=== PATIENT | male | born 1975 | race Caucasian/White ===

== ENCOUNTER 2017-10-27 07:03 | Inpatient (IN) | payer MEDICAID ==
[~2017-10-27] VITALS: Ht 175.3 cm; Wt 111.6 kg
--- NOTE | ~2017-10-27 | DS ---
PATIENT:ERIK ROUSSEAU :73 MEDICAL RECORD: [id number] DISCHARGE SUMMARY ADMISSION DATE: 10/27/17 DISCHARGE DATE: 11/05/17 PREOPERATIVE DIAGNOSES: 1. Prolapsed stoma, symptomatic. 2. Symptomatic parastomal hernia. 3. Severe hemorrhagic proctitis. 4. Hepatitis C. 5. Crohn's disease. 6. Postoperative ileus. PROCEDURES: 1. Parastomal hernia repair. 2. Ileostomy revision. 3. Flexible proctoscopy with biopsies. HOSPITAL COURSE: The patient underwent parastomal hernia repair as well as ileostomy revision. He had an ileus postoperatively. His ileus resolved. He was complaining of rectal discharge as well as rectal pain and pressure. He underwent flexible proctoscopy with biopsies. Severe hemorrhagic proctitis was noted. He is being dismissed back to his home residential facility. He is being dismissed back with the recommendation that he use a wheelchair for 60 days. He will need some type of analgesia. I have written a prescription for tramadol 50 mg one p.o. every 6 hours, I would like him to start back on his Asacol 800 mg t.i.d. as well as Cortenema 1 per rectum b.i.d. I will see him in my office in 3 weeks for suture removal. TRANSINT:[id number] Voice Confirmation ID: [id number] DOCUMENT ID: [id number] JONATHAN YO MD at 0938 CC: [id number] DICTATION DATE: 11/05/17 1047 PATIENT FINANCIAL SERVICES MANAGER: 11/05/17 1456 DIS IN 11/05/17 [place] [id number]
--- NOTE | ~2017-10-27 | OP ---
PATIENT NAME: ERIK ROUSSEAU MEDICAL RECORD: [id number] :73 LOCATION:D.[facility] ADMISSION DATE:10/27/17 SURGEON: SIVAKUMAR YO MD DATE OF OPERATION: 11/05/2017 PREOPERATIVE DIAGNOSES: 1. Anorectal pain. 2. Crohn's disease. POSTOPERATIVE DIAGNOSES: 1. Anorectal pain. 2. Crohn's disease. 3. Severe distal proctitis with hemorrhage. PROCEDURE: Flexible proctoscopy with biopsies. SURGEON: Sivakumar Yo MD CITRIX SYSTEMS ADMINISTRATOR: None. BLOOD LOSS: Less than 5 cc. ANESTHESIA: IV sedation. COMPLICATIONS: None. The patient is improving from the standpoint of his ileostomy revision and parastomal hernia repair. He is having gas as well as stool out in his bag. He is now complaining of rectal pressure as well as pain. ENDOSCOPIC COURSE: The patient was conveyed to the endoscopy suite electively on 11/05/2017. IV sedation was induced by the anesthesia staff. It was necessary to have anesthesia staff present in order to provide adequate analgesia and sedation as the patient has a medication tolerance. IV sedation was induced by the anesthesia staff. The patient was placed in the Chandra position. A digital rectal examination was performed. A colonoscope was inserted through the anus. It was advanced to the blind rectal pouch. I slowly withdrew the endoscope. There was a contact bleeding as well as spontaneous bleeding. Biopsies were taken in the distal rectum where the proctitis was most severe. The patient was then conveyed back to the room. I am going to recommend steroid enema such as Cortenema one per rectum b.i.d. I would recommend he be started back on his Asacol 800 mg 1 p.o. t.i.d. The patient can consider some type of analgesia. I would recommend tramadol 50 mg 1 p.o. every 6 hours p.r.n. pain, #20. I have asked the patient to see me in the office in 3 weeks for suture removal. Please consider allowing him to use a wheelchair for 60 days. TRANSINT:[id number] Voice Confirmation ID: [id number] DOCUMENT ID: [id number] OPERATIVE REPORT [id number] ERIK ROUSSEAU SIVAKUMAR YO MD at 0938 CC: [id number] DICTATION DATE: 11/05/17 1042 POUCH MAKING MACHINE OPERATOR: 11/05/17 1359 DIS IN 11/05/17 [place] [id number] [place] [id number]
--- NOTE | ~2017-10-27 | OP ---
PATIENT NAME: ERIK ROUSSEAU MEDICAL RECORD: [id number] :73 LOCATION:D.[facility] [place] ADMISSION DATE:10/28/17 SURGEON: JONATHAN YO MD DATE OF OPERATION: 10/27/2017 PREOPERATIVE DIAGNOSES: 1. Prolapsed ileostomy. 2. Parastomal hernia. POSTOPERATIVE DIAGNOSES: 1. Prolapsed ileostomy. 2. Incarcerated parastomal hernia. PROCEDURE: 1. Ileostomy revision. 2. Incarcerated parastomal hernia repair without mesh. SURGEON: Jonathan Yo MD WINDING INSPECTOR AND TESTER: None. BLOOD LOSS: 75 cc. ANESTHESIA: General. COMPLICATIONS: None. The risks, possible complications and alternatives to the procedure were explained to the patient. He elects to proceed. The discussion specifically included, but was not limited to, bleeding requiring an emergency reoperation, infection, recurrent herniation, recurrent stomal prolapse. OPERATIVE COURSE: The patient was conveyed to the operating room electively on 10/27/2017. General anesthesia was induced by the anesthesia staff. The abdomen was sterilely prepped and draped. An incision was accomplished around the ileostomy. I was able to deliver more of the ileum. The hernia sac was excised. The incarcerated small bowel was identified and I was able to bluntly dissect inside the abdomen with my gloved finger to release some adhesions. The incarcerated small bowel was then returned to the peritoneal cavity. The parastomal hernia was repaired with multiple 0 Surgidac sutures tightening up the fascia circumferentially around the ileum. I then ligated and divided a portion of the mesentery to the ileum. I shortened the ileum by dividing it. A Latha type of ileostomy was fashioned with interrupted 3-0 Vicryl sutures. I then tightened up the skin medially and laterally to allow for a smaller opening for the ileostomy. This tightening was done with interrupted horizontal mattress 3-0 Vicryls. A stomal appliance was then applied. The patient was then extubated and conveyed to post-anesthesia care unit where he was in stable condition. TRANSINT:[id number] Voice Confirmation ID: [id number] DOCUMENT ID: [id number] OPERATIVE REPORT [id number] SOHAMERIK SYED JONATHAN YO MD at 1327 CC: JONATHAN DAMON MD, JUAN BARAKAT MD and VENKATA KAUR [id number] DICTATION DATE: 10/27/17 1124 GLAZE HANDLER: 10/27/17 1218 ADM IN [place] [id number] [place] [id number]
[~2017-10-27 07:03] MED LIST: ASACOL HD800 MG PO; ATIVAN2 MG/ML IM; BENTYL10 MG PO; BUSPAR10 MG PO; CIPRO500 MG; HYDROCODON-ACE1 EAC7 PO; HYDROCODONE-APA1 TAB PO; IMODIUM2 MG PO; KENALOG IN ORABA5 GM TP; KLONOPIN1 MG PO; LORTAB 5/500 TA1 TA2 PO; OXYCONTIN30 MG PO; PHENERGAN25 MG/ML IM; PREDNISONE20 MG PO; PRILOSEC20 MG PO; ROWASA 4 G4 G/60 ML/; ROXICODONE15 MG PO; SOLU-MEDRO40 MG/1 M1 IV; TRIAMCINOLONE A60 M1 TP; ULTRAM50 MG PO; VITAMIN B-121000 MCG PO; ZOFRAN4 MG PO; [UNRECOGNIZED DRUG - OTHER]
[2017-10-27] MEDS ORDERED: NEURONTIN 300300 MG (08:00)
[2017-10-27] MEDS ORDERED: ZYPREXA7.5 MG PO (08:01)
[2017-10-28 02:30] VITALS: BP 111/56
[2017-10-28 04:48] VITALS: BP 126/69; BMI 36.4
[2017-10-28 08:45] VITALS: BP 114/66
[2017-10-28 12:45] VITALS: BP 124/64
[2017-10-28 23:00] VITALS: BP 168/66
[2017-10-29 05:00] VITALS: BP 122/71
[2017-10-29 16:56] VITALS: BP 131/76
[2017-10-29 20:00] VITALS: BP 108/59
[2017-10-30 04:00] VITALS: BP 106/69
[2017-10-30 07:59] VITALS: BP 108/55
[2017-10-30 12:03] VITALS: Ht 175.3 cm; Wt 111.6 kg
[2017-10-30 12:23] VITALS: BP 108/51
[2017-10-30 15:52] VITALS: BP 132/81
[2017-10-30 20:00] VITALS: BP 94/51
[2017-10-31] VITALS: BP 102/59
[2017-10-31 05:00] VITALS: BP 91/46
[2017-10-31 11:06] LABS: BASOPHILS 0 % (0-2); EOSINOPHILS 1.6 % (0-7); HEMATOCRIT 34.8 % (42.0-54.0); HEMOGLOBIN 11.8 g/dL (13.5-17.5); IMMATURE GRANULOCYTES 0.4 % (0-5); LYMPHOCYTES 15.4 % (15-50); MCH 29.1 pg (26.0-34.0); MCHC 33.9 g/dL (31.0-37.0); MCV 85.9 fL (80.0-100.0); MEAN PLATELET VOLUME 9.7 fL (7.4-10.4); MONOCYTES 8.1 % (2-11); NEUTROPHILS 74.5 % (40-80); PLATELET COUNT 154 10x3/uL (130-400); RBC 4.05 10x6/uL (4.20-6.10); RDW 13.3 % (11.5-14.5); WBC 5.6 10x3/uL (4.8-10.8)
[2017-10-31 11:07] VITALS: BP 100/50
[2017-10-31 11:15] LABS: CALC OSMOLALITY 282 mosm/kg (275-300); CALCIUM 8.5 mg/dL (8.5-10.1); CARBON DIOXIDE 27.5 mmol/L (21.0-32.0); CHLORIDE - SERUM 106 mmol/L (98-107); CREATININE - SERUM 0.8 mg/dL (0.6-1.3); GLUCOSE 151 mg/dL (74-106); POTASSIUM - SERUM 3.5 mmol/L (3.5-5.1); SODIUM 139 mmol/L (136-145); UREA NITROGEN 18 mg/dL (7-18); eGFR NON AFRICAN AMERICAN > 90 mL/min (90-120)
[2017-10-31 15:14] VITALS: BP 97/48
[2017-10-31 22:00] VITALS: BP 118/55
[2017-11-01 05:00] VITALS: BP 122/62
[2017-11-01 05:08] LABS: BASOPHILS 0 % (0-2); EOSINOPHILS 2.9 % (0-7); HEMATOCRIT 34.4 % (42.0-54.0); HEMOGLOBIN 11.7 g/dL (13.5-17.5); IMMATURE GRANULOCYTES 0.2 % (0-5); LYMPHOCYTES 23.9 % (15-50); MCH 29.3 pg (26.0-34.0); MEAN PLATELET VOLUME 9.2 fL (7.4-10.4); MONOCYTES 8.6 % (2-11); NEUTROPHILS 64.4 % (40-80); PLATELET COUNT 155 10x3/uL (130-400); RDW 13.4 % (11.5-14.5); WBC 5.2 10x3/uL (4.8-10.8)
[2017-11-01 05:19] LABS: CALC OSMOLALITY 286 mosm/kg (275-300); CALCIUM 8.2 mg/dL (8.5-10.1); CARBON DIOXIDE 24.8 mmol/L (21.0-32.0); CHLORIDE - SERUM 110 mmol/L (98-107); CREATININE - SERUM 0.7 mg/dL (0.6-1.3); GLUCOSE 110 mg/dL (74-106); POTASSIUM - SERUM 3.7 mmol/L (3.5-5.1); SODIUM 143 mmol/L (136-145); UREA NITROGEN 16 mg/dL (7-18); eGFR NON AFRICAN AMERICAN > 90 mL/min (90-120)
[2017-11-01 07:28] VITALS: BP 117/63
[2017-11-01 11:04] VITALS: BP 116/64
[2017-11-01 20:00] VITALS: BP 126/75
[2017-11-02] VITALS: BP 148/93
[2017-11-02 04:00] VITALS: BP 138/88
[2017-11-02 08:51] VITALS: BP 120/71
[2017-11-02 12:20] VITALS: BP 135/78
[2017-11-02 13:05] LABS: BASOPHILS 0 % (0-2); EOSINOPHILS 2.9 % (0-7); HEMATOCRIT 35.9 % (42.0-54.0); HEMOGLOBIN 12.2 g/dL (13.5-17.5); IMMATURE GRANULOCYTES 0.4 % (0-5); LYMPHOCYTES 16.4 % (15-50); MCH 28.9 pg (26.0-34.0); MCV 85.1 fL (80.0-100.0); MEAN PLATELET VOLUME 8.8 fL (7.4-10.4); MONOCYTES 9.3 % (2-11); PLATELET COUNT 162 10x3/uL (130-400); RBC 4.22 10x6/uL (4.20-6.10); WBC 4.5 10x3/uL (4.8-10.8)
[2017-11-02 13:17] LABS: CALC OSMOLALITY 276 mosm/kg (275-300); CALCIUM 7.9 mg/dL (8.5-10.1); CARBON DIOXIDE 25.9 mmol/L (21.0-32.0); CHLORIDE - SERUM 106 mmol/L (98-107); CREATININE - SERUM 0.7 mg/dL (0.6-1.3); GLUCOSE 96 mg/dL (74-106); POTASSIUM - SERUM 3.5 mmol/L (3.5-5.1); SODIUM 139 mmol/L (136-145); eGFR NON AFRICAN AMERICAN > 90 mL/min (90-120)
[2017-11-02 13:18] LABS: UREA NITROGEN 11 mg/dL (7-18)
[2017-11-02 16:03] VITALS: BP 127/71
[2017-11-02 20:00] VITALS: BP 135/79
[2017-11-03] VITALS: BP 129/73
[2017-11-03 04:00] VITALS: BP 130/76
[2017-11-03 08:35] LABS: BASOPHILS 0.2 % (0-2); EOSINOPHILS 2.3 % (0-7); HEMOGLOBIN 13.1 g/dL (13.5-17.5); IMMATURE GRANULOCYTES 0.5 % (0-5); LYMPHOCYTES 13.5 % (15-50); MCH 28.8 pg (26.0-34.0); MCHC 34.5 g/dL (31.0-37.0); MCV 83.5 fL (80.0-100.0); MEAN PLATELET VOLUME 8.9 fL (7.4-10.4); MONOCYTES 9.2 % (2-11); NEUTROPHILS 74.3 % (40-80); PLATELET COUNT 174 10x3/uL (130-400); RBC 4.55 10x6/uL (4.20-6.10); RDW 12.9 % (11.5-14.5)
[2017-11-03 08:45] LABS: WBC 5.7 10x3/uL (4.8-10.8)
[2017-11-03 09:01] LABS: ALBUMIN 2.9 g/dL (3.4-5.0); ALKALINE PHOSPHATASE 200 U/L (46-116); ALT (SGPT) 53 U/L (10-68); BILIRUBIN - TOTAL 1.01 mg/dL (0.2-1.3); CALC OSMOLALITY 270 mosm/kg (275-300); CALCIUM 8.3 mg/dL (8.5-10.1); CARBON DIOXIDE 26.4 mmol/L (21.0-32.0); CHLORIDE - SERUM 101 mmol/L (98-107); CREATININE - SERUM 0.6 mg/dL (0.6-1.3); GLUCOSE 101 mg/dL (74-106); MAGNESIUM - SERUM 2.2 mg/dL (1.8-2.4); PHOSPHOROUS 3.2 mg/dL (2.5-4.9); POTASSIUM - SERUM 3.7 mmol/L (3.5-5.1); PROTEIN - SERUM 5.7 g/dL (6.4-8.2); SODIUM 136 mmol/L (136-145); UREA NITROGEN 10 mg/dL (7-18); eGFR NON AFRICAN AMERICAN > 90 mL/min (90-120)
[2017-11-03 09:56] VITALS: BP 129/87
[2017-11-03 12:47] VITALS: BP 121/72
[2017-11-03 16:13] VITALS: BP 117/73
[2017-11-03 20:00] VITALS: BP 119/71
[2017-11-04] VITALS: BP 113/76
[2017-11-04 04:00] VITALS: BP 115/68
[2017-11-04 08:07] VITALS: BP 127/80
[2017-11-04 08:45] LABS: BASOPHILS 0.2 % (0-2); EOSINOPHILS 3.4 % (0-7); HEMATOCRIT 39.1 % (42.0-54.0); HEMOGLOBIN 13.6 g/dL (13.5-17.5); IMMATURE GRANULOCYTES 0.6 % (0-5); LYMPHOCYTES 15.5 % (15-50); MCH 28.9 pg (26.0-34.0); MCHC 34.8 g/dL (31.0-37.0); MONOCYTES 8.5 % (2-11); NEUTROPHILS 71.8 % (40-80); PLATELET COUNT 184 10x3/uL (130-400); RBC 4.71 10x6/uL (4.20-6.10); RDW 12.8 % (11.5-14.5); WBC 4.7 10x3/uL (4.8-10.8)
[2017-11-04 09:00] LABS: ALBUMIN 2.8 g/dL (3.4-5.0); ALKALINE PHOSPHATASE 181 U/L (46-116); ALT (SGPT) 38 U/L (10-68); BILIRUBIN - TOTAL 0.89 mg/dL (0.2-1.3); CALC OSMOLALITY 275 mosm/kg (275-300); CALCIUM 8.8 mg/dL (8.5-10.1); CARBON DIOXIDE 25.5 mmol/L (21.0-32.0); CHLORIDE - SERUM 102 mmol/L (98-107); CREATININE - SERUM 0.7 mg/dL (0.6-1.3); GLUCOSE 97 mg/dL (74-106); MAGNESIUM - SERUM 2.3 mg/dL (1.8-2.4); PHOSPHOROUS 3.2 mg/dL (2.5-4.9); POTASSIUM - SERUM 4.1 mmol/L (3.5-5.1); PROTEIN - SERUM 6.4 g/dL (6.4-8.2); SODIUM 138 mmol/L (136-145); UREA NITROGEN 12 mg/dL (7-18); eGFR NON AFRICAN AMERICAN > 90 mL/min (90-120)
[2017-11-04 12:43] VITALS: BP 124/80
[2017-11-04 16:08] VITALS: BP 109/68
[2017-11-04 20:00] VITALS: BP 132/65
[2017-11-05 04:00] VITALS: BP 113/78
[2017-11-05 08:35] VITALS: BP 111/73
[2017-11-05] MEDS ORDERED: CORTENEMA100 MG/60 RC (11:44)
[2017-11-05] MEDS ORDERED: ULTRAM50 MG PO (11:46)
== END 2017-11-05 14:23 | DRG 354 ==
LOC: D.MS 07:03 → D.OPS 07:03 → D.MS 18:56 → D.OPS 10-28 16:00 → D.MS 10-28 16:00 → D.OPS 10-28 16:05 → D.MS 10-28 16:05 → EDSTATUS 11-05 09:00 → D.MS 11-05 14:23
PROVIDERS: Surgery
PROC: 0WQF0ZZ Repair Abdominal Wall, Open Approach (ICD-10-PCS; principal; 2017-10-27)
PROC: 0DBP8ZX Excision of Rectum, Via Natural or Artificial Opening Endoscopic, Diagnostic (ICD-10-PCS; 2017-11-05)
DX: K94.19 Other complications of enterostomy (principal); K50.90 Crohn's disease, unspecified, without complications; K56.7 Ileus, unspecified; K43.5 Parastomal hernia without obstruction or gangrene; K21.9 Gastro-esophageal reflux disease without esophagitis; K62.89 Other specified diseases of anus and rectum; B18.2 Chronic viral hepatitis C

== ENCOUNTER 2020-02-22 12:07 | Emergency (ER) | payer OTHER ==
[~2020-02-22] VITALS: Ht 180.3 cm; Wt 77.3 kg
[~2020-02-22 12:07] MED LIST changes: +CORTENEMA100 MG/60 RC; +NEURONTIN 300300 MG PO; +SULFAZINE EC500 MG PO; +ZYPREXA7.5 MG PO
[2020-02-22 12:26] VITALS: Ht 180.3 cm; Wt 77.3 kg
[2020-02-22 13:24] LABS: BASOPHILS 0.2 % (0-2); EOSINOPHILS 2.2 % (0-7); HEMATOCRIT 40.9 % (42.0-54.0); HEMOGLOBIN 13.8 g/dL (13.5-17.5); IMMATURE GRANULOCYTES 0.2 % (0-5); LYMPHOCYTES 18.4 % (15-50); MCH 27.8 pg (26.0-34.0); MCHC 33.7 g/dL (31.0-37.0); MCV 82.5 fL (80.0-100.0); MONOCYTES 8.2 % (2-11); NEUTROPHILS 70.8 % (40-80); PLATELET COUNT 160 10x3/uL (130-400); RBC 4.96 10x6/uL (4.20-6.10); RDW 14.2 % (11.5-14.5); WBC 5.4 10x3/uL (4.8-10.8)
[2020-02-22 13:28] LABS: CALC OSMOLALITY 278 mosm/kg (275-300); CALCIUM 8.9 mg/dL (8.5-10.1); CARBON DIOXIDE 26.1 mmol/L (21.0-32.0); CHLORIDE - SERUM 105 mmol/L (98-107); CREATININE - SERUM 0.8 mg/dL (0.6-1.3); GLUCOSE 94 mg/dL (74-106); POTASSIUM - SERUM 4.3 mmol/L (3.5-5.1); SODIUM 139 mmol/L (136-145); UREA NITROGEN 16 mg/dL (7-18); eGFR NON AFRICAN AMERICAN > 90 mL/min (90-120)
[2020-02-22 13:36] LABS: ALBUMIN 3.8 g/dL (3.4-5.0); ALKALINE PHOSPHATASE 168 U/L (30-120); ALT (SGPT) 53 U/L (10-68); AMYLASE - SERUM 46 U/L (25-115); BILIRUBIN - TOTAL 0.45 mg/dL (0.2-1.3); LIPASE 22 U/L (73-393); PROTEIN - SERUM 7.5 g/dL (6.4-8.2)
[2020-02-22 15:15] VITALS: BP 99/68
== END 2020-02-22 15:15 | disposition home or self-care (01) ==
LOC: D.ER 12:07
PROVIDERS: Family Medicine
DX: R10.9 Unspecified abdominal pain (principal); K50.90 Crohn's disease, unspecified, without complications

== ENCOUNTER 2020-12-31 01:16 | Inpatient (IN) | payer MEDICAID ==
[~2020-12-31] VITALS: Ht 180.3 cm; Wt 79.4 kg
[~2020-12-31 01:16] MED LIST changes: +LEVOFLOXACIN500 MG PO; +PHENERGAN25 M1 PO; -PHENERGAN25 MG/ML IM
--- NOTE | 2020-12-31 03:37 | NUR ---
CORRECTION OFFICERS AT BEDSIDE
--- NOTE | 2020-12-31 03:44 | NUR ---
PT REFUSED PLACEMENT OF NG TUBE.
--- NOTE | 2020-12-31 03:50 | NUR ---
RECEIVED REPORT FROM ER, PT IS A&OX4, ESCORTED WITH 2 GUARDS,HISTORY AND MEDS REVIEWED, PT IS REFUSING NGT, WILL CONTINUE PLAN OF CARE
[2020-12-31] MEDS ORDERED: PEPCID AC20 MG PO (04:32)
[2020-12-31] MEDS ORDERED: ONDANSETRON HCL8 MG PO (04:34)
[2020-12-31 04:55] VITALS: BP 109/69
--- NOTE | 2020-12-31 07:00 | NUR ---
LYING IN BED, AWAKE/ALERT/ORIENTED, T/R SELF AD MAYRA, CONT OF URINE WITH USE OF URINAL/BRPs AD MAYRA, COLOSTOMY BAG IN PLACE, EMPTIED AD MAYRA, CLEANED DAILY, C/O SHARP ABD PAIN RATED 8/10, MEDICATED ORDERED (SEE MAR), NPO FOR PROCEDURE, CALL LIGHT/PHONE WITHIN REACH, NO S/S OF ACUTE DISTRESS OBSERVED.
[2020-12-31 08:19] VITALS: BP 110/66
[2020-12-31 11:24] VITALS: BP 101/61
[2020-12-31 12:29] VITALS: BMI 24.4
[2020-12-31 15:39] VITALS: BP 108/64
--- NOTE | 2020-12-31 16:23 | MORECARE ---
CASE MANAGEMENT DISCHARGE SUMMARY PATIENT: ERIK ROUSSEAU UNIT: [id number] ADM DATE: 12/31/20 AGE: 45 : 73 SEX: M ROOM/BED: D.2107 AUTHOR: WEI RAMÍREZ PHYSICIAN: REFERRING PHYSICIAN: JONATHAN YO MD DATE OF SERVICE: 12/31/20 Discharge Plan Patient Name: ERIK ROUSSEAU [facility] [facility] 1975 Planned Disposition: Court\Law Enforcement Anticipated Discharge Date: Discharge Date: Expected LOS: Initial Reviewer: [email or web address] Initial Review Date: 12/31/2020 Generated: 12/31/20 5:22 pm Comments DCP- Discharge Planning Updated by [email or web address]: Karlene Anderson on 12/31/20 3:[address] Patient Name: ERIK ROUSSEAU Admission Status: ER Accout number: [id number] Admission Date: 12-31-2020 : 1975 Admission Diagnosis: Attending: JONATHAN YO Current LOS: 1 Anticipated DC Date: Planned Disposition: Court\Law Enforcement Primary Insurance: MEDICAID SHELTER PENDING DC PLAN: Return to [facility] DC NEEDS: Escort back to [facility]. Patient is currently an inmate at [facility]. He will return there upon discharge from hospital. He will transport back via ambulance/[facility] arrangements. CM will continue to follow and assist as needed with dc plans/needs. Ship/Rec/Doc Control: Karlene Anderson Patient Name: ERIK ROUSSEAU Page [id number] at 1623 All edits/amendments must be made on the electronic document DICTATION DATE: 12/31/20 1623 SERVICE SPRINKLER HELPER: MICHAEL 12/31/20 1623 RPT#: [id number] DC DATE: STATUS: ADM IN [facility] [address] [place] [address] END OF REPORT
--- NOTE | 2020-12-31 17:00 | NUR ---
NON FOR RAIL CREW MEMBER DILAUDID, RAIL CREW MEMBER SET UP ORDERED, EXPLAINED HOW TO USE TO PT WHO VOICED UNDERSTANDING, RAIL CREW MEMBER BUTTON/CALL LIGHT/PHONE/WATER WITHIN REACH, NO S/S OF ACUTE DISTRESS OBSERVED.
--- NOTE | 2020-12-31 17:13 | NUR ---
ASSISTANT CONSTRUCTION SUPERINTENDENT DILAUDID STARTED AT THIS TIME.
--- NOTE | 2020-12-31 21:55 | NUR ---
REOPORT RECEIVED, WILL CONT POC. PT A&O, UP IN BED. NO S/S OF DISTRESS OBSERVED. RR EVEN AND UNLABORED ON RA. BED LOCKED AND LOWERED, CL IN REACH. ASSESSMENT COMPLETED AT THIS TIME. WILL CONT TO MONITOR.
[2021-01-01 01:07] VITALS: BP 99/54
[2021-01-01 05:22] LABS: BASOPHILS 0 % (0-2); EOSINOPHILS 0 % (0-7); HEMATOCRIT 34.6 % (42.0-54.0); HEMOGLOBIN 10.7 g/dL (13.5-17.5); LYMPHOCYTE ABS# 0.63 10x3/uL (1.32-3.57); LYMPHOCYTES 11.6 % (15-50); MCH 24.3 pg (26.0-34.0); MCHC 30.9 g/dL (31.0-37.0); MCV 78.5 fL (80.0-100.0); MEAN PLATELET VOLUME 9.4 fL (7.4-10.4); MONOCYTES 0.4 % (2-11); PLATELET COUNT 283 10x3/uL (130-400); RBC 4.41 10x6/uL (4.20-6.10); RDW 15.6 % (11.5-14.5); WBC 5.5 10x3/uL (4.8-10.8)
[2021-01-01 05:38] VITALS: BP 107/63
[2021-01-01 05:50] LABS: ALKALINE PHOSPHATASE 257 U/L (30-120); ALT (SGPT) 51 U/L (10-68); BILIRUBIN - TOTAL 0.51 mg/dL (0.2-1.3); CALC OSMOLALITY 285 mosm/kg (275-300); CALCIUM 8.6 mg/dL (8.5-10.1); CARBON DIOXIDE 23.1 mmol/L (21.0-32.0); CHLORIDE - SERUM 107 mmol/L (98-107); GLUCOSE 122 mg/dL (74-106); POTASSIUM - SERUM 4.3 mmol/L (3.5-5.1); PROTEIN - SERUM 6.6 g/dL (6.4-8.2); SODIUM 141 mmol/L (136-145); UREA NITROGEN 23 mg/dL (7-18); eGFR NON AFRICAN AMERICAN 85 mL/min (90-120)
--- NOTE | 2021-01-01 07:10 | NUR ---
LYING IN BED, AWAKE/ALERT/ORIENTED, T/R SELF AD MAYRA, FC PATENT AND DRAINING CLEAR YELLOW URINE TO CDB IN AMPLE AMT, CATH CARE PROVIDED WITH DAILY BATH AND PRN, CONT OF BOWEL WITH BRPs AD MAYRA, DENIES PAIN/OTHER DISCOMFORT AT THIS TIME, CALL LIGHT/PHONE/WATER WITHIN REACH, NO S/S OF ACUTE DISTRESS OBSERVED.
[2021-01-01 08:00] VITALS: BP 109/66
--- NOTE | 2021-01-01 08:30 | NUR ---
OFF UNIT FOR PROCEDURE.
--- NOTE | 2021-01-01 09:30 | NUR ---
BACK TO ROOM, CALL LIGHT/PHONE/WATER WITHIN REACH, NO S/S OF ACUTE DISTRESS OBSERVED.
--- NOTE | 2021-01-01 11:00 | NUR ---
3 ATTEMPTS MADE TO RESITE IV, NONE WERE SUCCESSFUL.
[2021-01-01 12:00] VITALS: BP 110/69
[2021-01-01 15:00] VITALS: BP 108/63
--- NOTE | 2021-01-01 15:00 | NUR ---
CONT TO ATTEMPT IV, 4 EFFORTS UNSUCCESSFUL, INCLUDING USE OF DOPPLER AND VEIN FINDER.
--- NOTE | 2021-01-01 17:00 | NUR ---
IV ACQUIRED BY NEEDLE PROCESS FELT GOODS SUPERVISOR USING ULTRASOUND TO LEFT UPPER ARM.
--- NOTE | 2021-01-01 17:15 | NUR ---
FLUIDS AND LCPC RESTARTED.
--- NOTE | 2021-01-01 17:40 | NUR ---
IV INFILTRATED, CALLED NERIS HARRISON, GOT ORDER FOR DC MERREPENEM IV/ORDER FOR LEVAQUIN 500 MG PO QD/NORCO 10 MG PO Q4H PRN, READ BACK ORDER WITH VERBAL CONFIRMATION PROVIDED BY NERIS HARRISON.
--- NOTE | 2021-01-01 17:55 | NUR ---
STUDENT NURSE INSTRUCTER ABLE TO GET 22 GA IN RT. WRIST AFTER 1 ATTEMPT.
--- NOTE | 2021-01-01 18:00 | NUR ---
SINCE IV LOOKS VERY FRAGILE, GAVE LEVAQUIN AND NORCO ORDERED, AFTER TAKING PT ASKED IF THIS NURSE WAS GOING TO RESTART SEWING MACHINE OPERATOR AND I REPLIED NO NOT AT THIS TIME. PT THEN ASKED TO SPEAK WITH CHARGE NURSE, THIS NURSE ATTEMPTED TO GIVE CHARGE NURSE RUN DOWN OF PROBLEM BEFORE SHE WENT IN TO SEE PT.
[2021-01-01 22:14] VITALS: BP 112/74
[2021-01-02 01:00] VITALS: BP 116/71
--- NOTE | 2021-01-02 02:50 | NUR ---
PATIENT AAOX4, NO S/S OF DISTRESS, RESP EVEN AND NON LABORED, MEDICATIONS ADMOSNITERED WITHOUT COMPLICATIONS, NO FURTHER NEEDS AT THIS TIME. CLIR, THERESAP
--- NOTE | 2021-01-02 04:27 | NUR ---
I have reviewed this patient and I concur with the Shift Assessment completed by the Licensed Practical Nurse today this shift.
[2021-01-02 04:59] VITALS: BP 109/65
[2021-01-02 07:56] VITALS: BP 120/72
--- NOTE | 2021-01-02 08:41 | NUR ---
PT AMBULATING IN ROOM AT THIS TIME. PT ASSISTED TO SHOWER WITH ASSISTANCE FROM STUDENT NURSE. PT AAOX3, PLEASANT AND DENIES ANY NEEDS AT THIS TIME.
--- NOTE | 2021-01-02 11:10 | NUR ---
Nutrition Follow-up: S/p SBFT yesterday showing PSBO vs enteritis. Diet advanced to regular this AM. Surgery reports pt continues to have poor PO intake, and when he eats, food stops in epigastric area & does not pass through to ostomy. CT A/P cancelled. No new wt; last wt: 175# (12/31) Labs reviewed Meds noted: Renetta Rust, NS @ 125 -Encourage PO intake and honor food preferences. -Offer nutrition supplements. -Monitor wt. -RD follow-up: 01/04
[2021-01-02 11:38] VITALS: BP 104/64
--- NOTE | 2021-01-02 12:51 | NUR ---
PT SITTING UP IN BED WITH HOB RAISED EATING LUNCH TRAY. RR EVEN NON LABORED. NO NEEDS VOICED AT THIS TIME. CLWR.
[2021-01-02 15:55] VITALS: BP 122/75
[2021-01-02 21:34] VITALS: BP 108/63
--- NOTE | 2021-01-02 22:00 | NUR ---
PT LAYING IN BED IN SUPINE POSITION. AAOX4. GINO DUNCAN PRESENT AT THE BEDSIDE. PATIENT HAS SHACKLES ON LEGS AND IS INSTRUCTED TO CALL FOR ASSISTANCE WHEN GETTING OUT OF BED. PT ALSO HAS A BIOSECURITY OFFICER PUMP ATTACHED TO IV. PT C/O PAIN 9/10 IN ABDOMEN. EDUCATION DONE AT BEDSIDE ON BIOSECURITY OFFICER PUMP AND PAIN CONTROL. PATIENT VERBALIZED UNDERSTANDING AT THIS TIME. PT IS ON ROOM AIR, VITALS WNL WITH OCCASIONAL BRADYCARDIA. PT DENIES ANY SYMPTOMS. PT ASKED NURSE FOR VALIUM SHOT, WHICH IS NOT ORDERED. PT APPEARS CALM AND COOPERATIVE AT THIS TIME. PT TO BE NPO AT MIDNIGHT, PT VERBALIZED UNDERSTANDING OF NPO ORDER.
[2021-01-03 00:40] VITALS: BP 108/59
--- NOTE | 2021-01-03 04:43 | NUR ---
NOTIFIED BY FISHER PT HR IS 45. UPON MANUAL ASSESSMENT OF HEART RATE, 45 IS CORRECT. PT IS AAOX4, SITTING UP IN BED. PT DENIES DIZZINESS, AND STATES HIS HR IS NORMALLY LOW. WILL CONTINUE TO MONITOR PATIENT FOR SYMPTOMS OF BRADYCARDIA.
[2021-01-03 06:10] LABS: BASOPHILS 0 % (0-2); EOSINOPHILS 0 % (0-7); HEMATOCRIT 33.6 % (42.0-54.0); HEMOGLOBIN 10.5 g/dL (13.5-17.5); IMMATURE GRANULOCYTES 0.1 % (0-5); LYMPHOCYTE ABS# 0.65 10x3/uL (1.32-3.57); LYMPHOCYTES 7.1 % (15-50); MCH 24.5 pg (26.0-34.0); MCHC 31.3 g/dL (31.0-37.0); MCV 78.3 fL (80.0-100.0); MEAN PLATELET VOLUME 9.4 fL (7.4-10.4); MONOCYTES 1.7 % (2-11); NEUTROPHIL ABS# 8.35 10x3/uL (1.78-5.38); NEUTROPHILS 91.1 % (40-80); PLATELET COUNT 277 10x3/uL (130-400); RBC 4.29 10x6/uL (4.20-6.10); RDW 16.2 % (11.5-14.5); WBC 9.2 10x3/uL (4.8-10.8)
[2021-01-03 07:12] LABS: ALBUMIN 3.1 g/dL (3.4-5.0); ALKALINE PHOSPHATASE 201 U/L (30-120); ALT (SGPT) 107 U/L (10-68); BILIRUBIN - TOTAL 0.37 mg/dL (0.2-1.3); CALC OSMOLALITY 278 mosm/kg (275-300); CALCIUM 8.6 mg/dL (8.5-10.1); CARBON DIOXIDE 25.3 mmol/L (21.0-32.0); CHLORIDE - SERUM 104 mmol/L (98-107); CREATININE - SERUM 0.8 mg/dL (0.6-1.3); GLUCOSE 141 mg/dL (74-106); SODIUM 137 mmol/L (136-145); UREA NITROGEN 21 mg/dL (7-18); eGFR NON AFRICAN AMERICAN > 90 mL/min (90-120)
--- NOTE | 2021-01-03 08:00 | NUR ---
PT RECEIVED AWAKE AND ALERT SITTING UP IN CHAIR. NPO FOR SURGERY. OSTOMY APPLIANCE SUPPLIED AND PT CHANGED PER SELF. GUARD IN ROOM. PAIN MED GIVEN ORALLY AND ALSO ON AVIONICS MECHANIC.
[2021-01-03 08:02] VITALS: BP 123/60
[2021-01-03 11:10] VITALS: BP 111/67
--- NOTE | 2021-01-03 11:13 | NUR ---
IV REMOVED DUE TO SORENESS AND SWELLING. NEW SITE IN LEFT WRIST WITHOUT COMPLAINTS.
[2021-01-03 14:53] VITALS: BP 122/62
--- NOTE | 2021-01-03 19:30 | NUR ---
PT IN BED, AAO X 3, RESP EVEN AND UNLABORED, NO DISTRESS NOTED, CL IN REACH, SR UP X 2.
[2021-01-03 20:50] VITALS: BP 104/60
[2021-01-04 00:25] VITALS: BP 104/61
[2021-01-04 04:16] VITALS: BP 118/69
--- NOTE | 2021-01-04 05:00 | NUR ---
I have reviewed this patient and I concur with the Shift Assessment completed by the Licensed Practical Nurse today this shift.
[2021-01-04 06:24] LABS: BASOPHILS 0 % (0-2); EOSINOPHILS 0 % (0-7); HEMATOCRIT 32.5 % (42.0-54.0); HEMOGLOBIN 10.1 g/dL (13.5-17.5); IMMATURE GRANULOCYTES 0.4 % (0-5); LYMPHOCYTE ABS# 0.54 10x3/uL (1.32-3.57); LYMPHOCYTES 10.5 % (15-50); MCH 24.3 pg (26.0-34.0); MCHC 31.1 g/dL (31.0-37.0); MCV 78.1 fL (80.0-100.0); MEAN PLATELET VOLUME 9.7 fL (7.4-10.4); MONOCYTES 5.1 % (2-11); NEUTROPHIL ABS# 4.32 10x3/uL (1.78-5.38); PLATELET COUNT 240 10x3/uL (130-400); RBC 4.16 10x6/uL (4.20-6.10); RDW 16.2 % (11.5-14.5)
[2021-01-04 06:34] LABS: WBC 5.1 10x3/uL (4.8-10.8)
[2021-01-04 06:52] LABS: ALBUMIN 2.7 g/dL (3.4-5.0); ALKALINE PHOSPHATASE 179 U/L (30-120); ALT (SGPT) 130 U/L (10-68); BILIRUBIN - TOTAL 0.35 mg/dL (0.2-1.3); CALC OSMOLALITY 279 mosm/kg (275-300); CALCIUM 8.2 mg/dL (8.5-10.1); CARBON DIOXIDE 28.2 mmol/L (21.0-32.0); CHLORIDE - SERUM 105 mmol/L (98-107); CREATININE - SERUM 0.7 mg/dL (0.6-1.3); GLUCOSE 164 mg/dL (74-106); POTASSIUM - SERUM 3.8 mmol/L (3.5-5.1); PROTEIN - SERUM 6.3 g/dL (6.4-8.2); SODIUM 137 mmol/L (136-145); UREA NITROGEN 19 mg/dL (7-18); eGFR NON AFRICAN AMERICAN > 90 mL/min (90-120)
--- NOTE | 2021-01-04 07:30 | NUR ---
PT RECEIVED SLEEPING IN BED, GUARD AT BEDSIDE. NPO FOR PROCEDURE.
[2021-01-04 07:51] VITALS: BP 137/68
[2021-01-04 09:17] VITALS: Ht 180.3 cm; Wt 79.4 kg
--- NOTE | 2021-01-04 09:30 | NUR ---
PT WITH VITALS SHOWING BRADYCARDIA. CHRISTY CASTRO WITH SURGERY CALLED AND EKG DONE AND TELEMETRY APPLIED. CARDIAC CONSULT PLACED. SURGERY CANCELLED FOR TODAY.
[2021-01-04 11:27] VITALS: BP 137/75
--- NOTE | 2021-01-04 12:35 | NUR ---
Nutrition Follow-up: Nursing reports pt has been eating very well. Noted surgery cancelled for today 2/2 bradycardia. Diet: Regular No new wt; last wt: 175# (12/31) Labs noted: Glu 164, Ca 8.2, Alb 2.7 Meds noted: Renetta Rust, SHELBI @ 125 -RD will follow up within 5-7 days if pt still admitted.
[2021-01-04 16:50] VITALS: BP 129/77
[2021-01-04 21:54] VITALS: BP 136/68
[2021-01-05 00:52] VITALS: BP 144/80
[2021-01-05 05:18] VITALS: BP 152/79
[2021-01-05 07:00] VITALS: BP 161/74
--- NOTE | 2021-01-05 08:00 | NUR ---
PT RECEIVED AWAKE AND ALERT. STATES NOT FEELING WELL TODAY, NOTHING SPECIFIC. ANTIBIOTIC GIVEN. GUARD AT BEDSIDE.
[2021-01-05 15:55] VITALS: BP 129/78
--- NOTE | 2021-01-05 20:00 | NUR ---
INITIAL ROUNDS AND ASSESSMENT COMPLETED. PT RESTING IN BED. LEFT LEG SHACKLED TO BED. HIGHWAY MAINTAINER PRESENT IN ROOM. PT ALERT/ORIENTED. VOICING NO NEEDS. NO C/OF. SB/52 PER TELEMETRY. NONLABORED RESPIRATIONS. IV TO LEFT WRIST SALINE LOCKED. COLOSTOMY TO ABDOMEN, PATENT. NO ISSUES.
[2021-01-06] VITALS: BP 134/86
[2021-01-06 04:00] VITALS: BP 115/70; BP 120/49
[2021-01-06 07:00] VITALS: BP 104/68
[2021-01-06 17:13] VITALS: BP 116/76
[2021-01-06 20:00] VITALS: BP 117/68
--- NOTE | 2021-01-06 20:00 | NUR ---
INITIAL ROUNDS AND ASSESSMENT COMPLETED. PT RESTING IN BED WITH DAIRY FARMWORKER AT BEDSIDE. ALERT/ORIENTED. NONLABORED RESPIRATIONS. SB 40-50 PER TELEMETRY. CPOC. CALL LIGHT IN REACH. ALWAYS HAS GUARD PRESENT.
[2021-01-07 03:30] VITALS: BP 98/68
[2021-01-07 08:00] VITALS: BP 120/70
--- NOTE | 2021-01-07 08:59 | NUR ---
PT LYING IN BED WITH HOB RAISED, PT HAS FLAT AFFECT THIS MORNING. RR EVEN NON LABORED. PT AAOX3, ANSWERS QUESTIONS APPROP. IV TO RIGHT FOREARM UNABLE TO FLUSH AND CAUSING DISCOMFORT, D/C'D WITH CATHETER INTACT. DRESSING APPLIED. PT AGGRAVATED REGARDING IV D/T HAVING MULTIPLE DURING HIS HOSPITAL STAY. REASSURANCE GIVEN. NO FURTHER NEEDS VOICED AT THIS TIME. CLWR.
--- NOTE | 2021-01-07 09:26 | NUR ---
PT ASSISTED TO SHOWER WITH PCT AT THIS TIME, PT GIVEN NEW COLOSTOMY BAG PER REQUEST. NO FURTHER NEEDS VOICED. CLWR.
--- NOTE | 2021-01-07 10:45 | NUR ---
MEDS GIVEN AT THIS TIME PER EMAR. PT SITTING IN CHAIR, PT APPEARS AGIGATED AT THIS TIME D/T SURGERY NOT HAPPENING AT THIS TIME. GAURD IN ROOM. NO NEEDS VOICED. CLWR.
--- NOTE | 2021-01-07 10:53 | NUR ---
SPOKE WITH PT REGARDING BEING ON SCHEDULE FOR SURGERY. PT STATES UNDERSTANDING. PT REQUESTED PAIN MEDICATION. NO FURTHER NEEDS VOICED. CLWR.
[2021-01-07 11:00] VITALS: BP 128/70
--- NOTE | 2021-01-07 14:24 | NUR ---
PT SITTING UP IN CHAIR, RR EVEN NON LABORED. NO NEEDS VOICED AT THIS TIME. GAURD AT BEDSIDE. CLWR.
--- NOTE | 2021-01-07 15:13 | NUR ---
PT TAKEN TO SURGERY AT THIS TIME.
[2021-01-07 17:55] VITALS: BP 94/56
--- NOTE | 2021-01-07 17:59 | NUR ---
PT ARRIVED BACK TO ROOM POST OP AT THIS TIME. PT AWAKE AND ALERT, VS STABLE. TELE MONITOR APPLIED. PT RR EVEN NON LABORED. PT CHANGED COLOSTOMY BAG AT THIS TIME D/T LEAKING. PT DENIES ANY PAIN AT THIS TIME. TEA GIVEN PER REQUEST. NO FURTHER NEEDS VOICED. CLWR.
[2021-01-07 19:19] VITALS: BP 99/61
--- NOTE | 2021-01-07 20:35 | NUR ---
DR. KIRK CALLED BACK WITH NEW ORDERS FOR MORPHINE BOOKING MANAGER PUMP. SEDATION STATUS AND VITALS MONITORING IN PLACE. PT A/O X4. RR E/U VITALS STABLE. BED LOW CALL LIGHT WITHIN REACH. WILL CONTINUE TO MONITOR.
[2021-01-07 23:12] VITALS: BP 100/65
--- NOTE | 2021-01-07 23:59 | NUR ---
PT A/O X4 NO S/S OF DISTRESS. NO COMPLAINTS OF PAIN OR FURTHER NEEDS AT THIS TIME. PT IS WEARING SCD'S. BED IS LOW CALL LIGHT WITHIN REACH. WILL CONTINUE TO MONITOR.
--- NOTE | 2021-01-08 01:13 | NUR ---
PT RESTING WITH EYES CLOSED RR E/U. VSS. PT DENIES ANY PAIN OR FURTHER NEEDS. PT IS COMFORTABLE AT THIS TIME. BED LOW CALL LIGHT WITHIN REACH. WILL CONTINUE TO MONITOR
--- NOTE | 2021-01-08 03:46 | NUR ---
I have reviewed this patient and I concur with the Shift Assessment completed by the Licensed Practical Nurse today this shift.
[2021-01-08 08:05] VITALS: BP 97/50
[2021-01-08 10:51] LABS: BASOPHILS 0 % (0-2); EOSINOPHILS 0.1 % (0-7); HEMATOCRIT 39.4 % (42.0-54.0); IMMATURE GRANULOCYTES 0.3 % (0-5); LYMPHOCYTE ABS# 1.05 10x3/uL (1.32-3.57); LYMPHOCYTES 8.1 % (15-50); MCH 25.3 pg (26.0-34.0); MCV 76.7 fL (80.0-100.0); MEAN PLATELET VOLUME 9.9 fL (7.4-10.4); MONOCYTES 6.2 % (2-11); NEUTROPHILS 85.3 % (40-80); PLATELET COUNT 220 10x3/uL (130-400); RBC 5.14 10x6/uL (4.20-6.10); RDW 16.9 % (11.5-14.5)
[2021-01-08 11:26] LABS: ALBUMIN 2.8 g/dL (3.4-5.0); ALKALINE PHOSPHATASE 180 U/L (30-120); ALT (SGPT) 175 U/L (10-68); BILIRUBIN - TOTAL 1.05 mg/dL (0.2-1.3); CALC OSMOLALITY 283 mosm/kg (275-300); CALCIUM 8.2 mg/dL (8.5-10.1); CARBON DIOXIDE 21.2 mmol/L (21.0-32.0); CHLORIDE - SERUM 102 mmol/L (98-107); CREATININE - SERUM 1.1 mg/dL (0.6-1.3); GLUCOSE 207 mg/dL (74-106); POTASSIUM - SERUM 3.8 mmol/L (3.5-5.1); SODIUM 135 mmol/L (136-145); UREA NITROGEN 35 mg/dL (7-18); eGFR NON AFRICAN AMERICAN 76 mL/min (90-120)
[2021-01-08 12:03] VITALS: BP 91/48
[2021-01-08 15:46] VITALS: BP 94/54
[2021-01-08 19:53] VITALS: BP 108/57
--- NOTE | 2021-01-08 21:18 | NUR ---
PT REFUSES TELEMETRY. TELE RETURNED TO MONITOR.
[2021-01-08 23:39] VITALS: BP 108/54
--- NOTE | 2021-01-09 01:49 | NUR ---
I have reviewed this patient and I concur with the Shift Assessment completed by the Licensed Practical Nurse today this shift.
[2021-01-09 04:00] VITALS: BP 128/75
--- NOTE | 2021-01-09 07:22 | NUR ---
PT AGGRAVATED THIS MORNING AND WANTS HIS BREAKFAST TRAY NOW. CALLED DIETARY AND REQUESTED TRAY BE BROUGHT EARLY. PT RR EVEN NON LABORED, AAOX3, DENIES ANY FURTHER NEEDS AT THIS TIME. CLWR.
--- NOTE | 2021-01-09 07:41 | NUR ---
PT GIVEN BREAKFAST TRAY AND AM MEDS AT THIS TIME. PT SITTING IN CHAIR, RR EVEN NON LABORED. PT AAOX3, ANSWERS QUESTIONS APPROP. NO NEEDS VOICED. CLWR.
[2021-01-09 08:10] VITALS: BP 101/61
[2021-01-09] MEDS ORDERED: CELEXA20 MG PO (09:47)
[2021-01-09] MEDS ORDERED: ULTRAM50 MG PO (09:48)
--- NOTE | 2021-01-09 10:57 | NUR ---
CALLED AND SPOKE WITH CHRISTY REGARDING A DOC TO DOC FOR D/C. SHE IS AWARE AND THEY ARE WORKING ON IT FOR PT TO BE D/C'D BACK TO FACILITY.
--- NOTE | 2021-01-09 11:06 | NUR ---
Nutrition Reassessment/Follow-up: POD 2 open repair of recurrent parastomal hernia. Eating well. Noted plans to d/c. Diet: Regular No new wt; last wt: 175# (12/31) Labs noted (01/08): Na 135, Glu 207, Ca 8.2, Alb 2.8 Meds noted: Renetta Rust, NS @ 125 -Nutrition needs unchanged; no new wt available. -RD will follow up within 7 days if pt still admitted.
[2021-01-09 11:38] VITALS: BP 106/59
--- NOTE | 2021-01-09 12:30 | NUR ---
PRN MEDS GIVEN PER EMAR AT THIS TIME. PT SITTING IN CHAIR EATING LUNCH. NO FURTHER NEEDS VOICED. CLWR.
--- NOTE | 2021-01-09 13:10 | NUR ---
PT GIVEN COLOSTOMY SUPPLIES AND LINENS CHANGED PER REQUEST AT THIS TIME. PT SITTING UP IN CHAIR, RR EVEN NON LABORED. PT DENIES ANY FURTHER NEEDS, CLWR.
--- NOTE | 2021-01-09 13:57 | NUR ---
SPOKE WITH MONET DAVIS TO BE D/C BACK TO FACILITY TODAY.
--- NOTE | 2021-01-09 14:15 | NUR ---
D/C INSTRUCTIONS AND PAPERWORK REVIEWED WITH PT. PT SIGNED DOCUMENTS. NO QUESTIONS VOICED, [facility] NOTIFIED OF D/C ORDERS.
--- NOTE | 2021-01-09 14:23 | NUR ---
[facility] AT [facility].
--- NOTE | 2021-01-09 14:28 | NUR ---
PAPERWORK GIVEN TO [facility] AT THIS TIME. [facility] STATES THEY WILL D/C AROUND 1800 THIS EVENING AT SHIFT CHANGE FOR TRANSPORT.
--- NOTE | 2021-01-09 14:36 | MORECARE ---
CASE MANAGEMENT DISCHARGE SUMMARY PATIENT: ERIK ROUSSEAU UNIT: [id number] ADM DATE: 12/31/20 AGE: 45 : 73 SEX: M ROOM/BED: D.2107 AUTHOR: WEI RAMÍREZ PHYSICIAN: REFERRING PHYSICIAN: JONATHAN YO MD DATE OF SERVICE: 01/09/21 Discharge Plan Patient Name: ERIK ROUSSEAU Facility: [facility]:[place] : 1975 Planned Disposition: Court\Law Enforcement Anticipated Discharge Date: Discharge Date: Expected LOS: Initial Reviewer: [email or web address] Initial Review Date: 12/31/2020 Generated: 01/09/21 3:35 pm Comments DCP- Discharge Planning Updated by [email or web address]: Karlene Anderson on 01/09/21 1:[address] Patient Name: ERIK ROUSSEAU Encounter No: [id number] : 1975 Primary Insurance: MEDICAID RESIDENTIAL PENDING Anticipated DC Date: Planned Disposition: Court\Law Enforcement External Planned Provider: : DCP follow-up note: Received discharge orders. Faxed clinical to [facility] and phone number for report to [place] unit given to bedside nurse #[phone]. Case management will follow and assist as needed. Karlene Anderson DCP- Discharge Planning Updated by [email or web address]: Karlene Anderson on 12/31/20 3:[address] Patient Name: ERIK ROUSSEAU Admission Status: ER Accout number: [id number] Admission Date: 12-31-2020 : 1975 Admission Diagnosis: Attending: JONATHAN YO Current LOS: 1 Anticipated DC Date: Planned Disposition: Court\Law Enforcement Primary Insurance: MEDICAID RESIDENTIAL PENDING DC PLAN: Return to [facility] DC NEEDS: Escort back to [facility]. Patient is currently an inmate at [facility]. He will return there upon discharge from hospital. He will transport back via ambulance/[facility] arrangements. CM will continue to follow and assist as needed with dc plans/needs. Felt Hat Pouncing Operator Hand: Karlene Anderson Last DP export: 12/31/20 3:23 pm Patient Name: ERIK ROUSSEAU Page 48091 at 1436 All edits/amendments must be made on the electronic document DICTATION DATE: 01/09/211434 INSTRUMENT AND CONTROL TECHNICIAN: MICHAEL 01/09/211434 RPT#: [id number] DC DATE: STATUS: ADM IN [facility] [address] [place] [address] END OF REPORT
--- NOTE | 2021-01-09 17:45 | NUR ---
PT GIVEN PRN PAIN MEDICATION PRIOR TO DEPARTURE PER REQUEST D/T PAIN AND WANTING PAIN CONTROL PRIOR TO RIDE BACK TO FACILITY. PT ASSISTED TO WHEELCHAIR WITH ALL BELONGINGS. 2 RANDYDS AT SIDE.
--- NOTE | 2021-01-09 17:47 | NUR ---
PT WHEELED TO CORRECTIONAL OFFICE VAN WITH PCT AND 2 NAVEEN AT THIS TIME. ALL BELONGINGS WITH PT TIME OF D/C. PAPERWORK WITH [facility]. NO DISTRESS NOTED.
--- NOTE | 2021-01-10 08:00 | MORECARE ---
CASE MANAGEMENT DISCHARGE SUMMARY PATIENT: ERIK ROUSSEAU UNIT: [id number] ADM DATE: 12/31/20 AGE: 45 : 73 SEX: M ROOM/BED: D.2107 AUTHOR: DARRELL,DOC PHYSICIAN: REFERRING PHYSICIAN: JONATHAN YO MD DATE OF SERVICE: 01/10/21 Discharge Plan Patient Name: ERIK ROUSSEAU Facility: [facility]:[place] : 1975 Planned Disposition: Court\Law Enforcement Anticipated Discharge Date: Discharge Date: 01/09/2021 Expected LOS: Initial Reviewer: [email or web address] Initial Review Date: 12/31/2020 Generated: 01/10/21 8:59 am Comments DCP- Discharge Planning Updated by [email or web address]: Karlene Anderson on 01/09/21 1:[address] Patient Name: ERIK ROUSSEAU Encounter No: [id number] : 1975 Primary Insurance: MEDICAID MCC PENDING Anticipated DC Date: Planned Disposition: Court\Law Enforcement External Planned Provider: : DCP follow-up note: Received discharge orders. Faxed clinical to [facility] and phone number for report to [place] unit given to bedside nurse #[phone]. Case management will follow and assist as needed. Karlene Anderson DCP- Discharge Planning Updated by [email or web address]: Karlene Anderson on 12/31/20 3:[address] Patient Name: ERIK ROUSSEAU Admission Status: ER Accout number: [id number] Admission Date: 12-31-2020 : 1975 Admission Diagnosis: Attending: JONATHAN YO Current LOS: 1 Anticipated DC Date: Planned Disposition: Court\Law Enforcement Primary Insurance: MEDICAID MCC PENDING DC PLAN: Return to [facility] DC NEEDS: Escort back to [facility]. Patient is currently an inmate at [facility]. He will return there upon discharge from hospital. He will transport back via ambulance/[facility] arrangements. CM will continue to follow and assist as needed with dc plans/needs. Block Cableman: Karlene Anderson Last DP export: 01/09/21 1:36 p Patient Name: ERIK ROUSSEAU Page 92192 at 0800 All edits/amendments must be made on the electronic document DICTATION DATE: 01/10/21758 PORTRAIT ARTIST: MICHAEL 01/10/21758 RPT#: [id number] DC DATE:01/09/21 STATUS: DIS IN [facility] [address] [place] [address] END OF REPORT
--- NOTE | 2021-01-10 11:56 | OP ---
PATIENT NAME: ERIK ROUSSEAU MEDICAL RECORD: [id number] :73 LOCATION:D.M2 D.2107 ADMISSION DATE:12/31/20 SURGEON: JONATHAN YO MD DATE OF OPERATION: 01/07/2021 PRINCIPAL DIAGNOSES: 1. Recurrent parastomal hernia. 2. Low-grade partial small-bowel obstruction. POSTOPERATIVE DIAGNOSES: 1. Recurrent parastomal hernia. 2. Low-grade partial small-bowel obstruction. 3. Incarceration of the hernia. PROCEDURE: Open repair of recurrent parastomal hernia with a 5 cm x 10 cm AlloMax which is a human dermal graft. SURGEON: Jonathan Yo MD PROCESS DEVELOPER: Joaquin Porter, third year medical student. BLOOD LOSS: Please see the anesthesia sheet. COMPLICATIONS: None. The patient's CT scan was worrisome for a loop of bowel in the parastomal hernia that may be causing the low-grade partial small-bowel obstruction. During the operation, I did not identify that there was a loop of small bowel up in the parastomal hernia causing the low-grade obstruction. The risks, possible complications, and alternatives to the procedure were explained to the patient. He elects to proceed. OPERATIVE COURSE: The patient was conveyed to the operating room electively on 01/07/2021. General anesthesia was induced by the anesthesia staff. The abdomen was sterilely prepped and draped. A circular incision was accomplished at the margin of the ileostomy. I was able to mobilize ileostomy through sharp and blunt dissection. There was a fluid collection that was surrounded by the biologic graft that had been used previously in the patient's parastomal hernia repair. This fluid collection did not appear to be infected. It was brown and thin and somewhat clear. It appears that the biologic mesh had been used previously had extruded up into the parastomal hernia. Portions of the biologic mesh were excised. I then cleaned the fascia around the ileostomy of surrounding tissue. I did some blunt dissection around the ileum within the abdomen as well. I then took a 5 cm x 10 cm AlloMax mesh, made an incision in it, brought the ileum up through the incision in the center of the AlloMax, and then pushed the AlloMax down and pushed into the abdominal cavity. I sutured the AlloMax to surrounding fascia with a 2-0 Prolene suture. I sutured the AlloMax to the ileum with 2-0 Prolenes. I then tightened up the fascia with some 2-0 Prolenes in a horizontal mattress fashion to pleat the fascia and decrease the fascial opening through which the ileum came out. There was still excellent arterial flow into to ileum. I then fashioned a Latha ileostomy with 3-0 Vicryl sutures. This was done in a standard fashion. We then tested for arterial flow at the margin of the ileostomy with handheld Doppler. There was good arterial flow. A stomal appliance was applied. OPERATIVE REPORT [id number] ERIK ROUSSEAU The patient was then extubated and conveyed to post-anesthesia care unit where he was in stable condition. TRANSINT:[id number] Voice Confirmation ID: [id number] DOCUMENT ID: [id number] cc: Dr. Raciel YO, JONATHAN GARCIA at [id number] CC: DR. RACIEL ROSADO [id number] DICTATION DATE: 01/09/21716 SENIOR TECHNICAL SPECIALIST: 01/09/21 1353 DIS IN 01/09/21 [facility] [address] [place] [address]
== END 2021-01-09 17:48 | DRG 354 ==
LOC: D.ER 01:16 → D.M2 02:33 → D.EDHOLD 02:33 → D.M2 02:47
PROVIDERS: Emergency Medicine; ADMIT Surgery; ATTEND Surgery
PROC: 0WUF0KZ Supplement Abdominal Wall with Nonautologous Tissue Substitute, Open Approach (ICD-10-PCS; principal; 2021-01-07 12:15)
DX: K56.609 Unspecified intestinal obstruction, unspecified as to partial versus complete obstruction (principal); L02.211 Cutaneous abscess of abdominal wall; K50.90 Crohn's disease, unspecified, without complications; J43.9 Emphysema, unspecified; B19.20 Unspecified viral hepatitis C without hepatic coma; R00.1 Bradycardia, unspecified; T40.605A Adverse effect of unspecified narcotics, initial encounter; I95.2 Hypotension due to drugs; F41.8 Other specified anxiety disorders; G89.29 Other chronic pain